=== PATIENT | male | born 1970 | race Caucasian/White ===

== ENCOUNTER → 2020-12-12 | Day surgery (SDC) | payer OTHER ==
[~2020-12-12] MED LIST: BUPIVACAINE MPF 0.25% 10 ML VIAL. ONE; DEXAMETHASONE SOD PHOS 10 MG/ML VIAL. ONE; IOHEXOL 300 MG/ML 50 ML VIAL. ONE; LIDOCAINE 1% PF 30 ML VIAL. ONE
[2020-12-12 15:04] VITALS: BP 104/53
--- NOTE | 2020-12-12 15:08 | NUR ---
Patient returned from the procedure ambulating unassisted. Patient was seated in chair for vital signs and was noted to be clammy and pale. Notified physician, elevated feet and provided water to drink. See vital sign record. Attempted to sit patient up in the chair once blood pressure was closer to baseline and again patient hypotensive and reported episode of lightheadedness that last a minute or two then dissipated. Patient stated "I feel fine". Patient was reclined again, physician notified, instructions to push PO fluids, had patient finished first cup of water and provided a second. Blood pressure again returned to baseline and returned to sitting. See vital sign record. Patient continued to state "I feel fine". Patient moved to standing and did not express any change, blood pressure initially dropped but on immediate recheck back to baseline times 2. Jonny gamboaed patient for discharge. Patient ambulated unassisted without complaint to exit with RN.
== END ==
LOC: SURG 13:20
PROVIDERS: ATTEND Anesthesiology
DX: M54.16 Radiculopathy, lumbar region (principal); M47.816 Spondylosis without myelopathy or radiculopathy, lumbar region; M54.5 Low back pain; I10 Essential (primary) hypertension; E11.9 Type 2 diabetes mellitus without complications; M19.90 Unspecified osteoarthritis, unspecified site; Z79.899 Other long term (current) drug therapy; Z98.890 Other specified postprocedural states
CPT/HCPCS: 64483; J1100; J3490; Q9967